=== PATIENT | male | born 1960 | race Caucasian/White ===

== ENCOUNTER 2019-03-04 07:43 | Emergency (ER) | payer SELFPAY ==
[~2019-03-04] VITALS: Ht 188 cm; Wt 81.6 kg
[2019-03-04 07:49] VITALS: BP 143/69
--- NOTE | 2019-03-04 08:09 | PHYS DOC ---
Past Medical History Past Medical History: Asthma, COPD, Diabetes-Type II, Hypertension Additional Past Surgical Histo: hernia,spleen Alcohol Use: None Drug Use: None Adult General Chief Complaint Chief Complaint: ANIMAL BITE HPI HPI Patient is a 58-year-old male who presents after reportedly being bitten by a stray cat 2 days ago. Patient indicates that his right hand has become swollen and painful and extends up to the distal forearm. He rates pain as moderate. He denies any fevers. Attack was reportedly unprovoked.[] Review of Systems Review of Systems Constitutional: Denies fever or chills [] Respiratory: Denies cough or shortness of breath [] Cardiovascular: No additional information not addressed in HPI [] Musculoskeletal: Positive right hand and wrist pain [] Neurologic: Denies headache, focal weakness or sensory changes [] All other systems were reviewed and found to be within normal limits, except as documented in this note. Physical Exam Physical Exam Constitutional: Well developed, well nourished, no acute distress, non-toxic appearance. [] HENT: Normocephalic, atraumatic, bilateral external ears normal, oropharynx moist, no oral exudates, nose normal. [] Eyes: PERRLA, EOMI, conjunctiva normal, no discharge. [] Neck: Normal range of motion, no tenderness, supple. [] Cardiovascular: Regular rate and rhythm[] Lungs & Thorax: Fine rhonchi are noted bilaterally to auscultation [] Abdomen: Bowel sounds normal, soft. [] Skin: Warm, dry. There is erythema and warmth noted to the dorsal aspect of right hand. There are several puncture wounds to the dorsal aspect of the hand and wrist area, consistent with cat bite. [] Extremities: Examination of right hand demonstrates moderate soft tissue swelling primarily to the dorsal aspect of the hand extending to the distal forearm and wrist. There is moderate tenderness to palpation overlying this area and pain in the dorsal hand with flexion of the fingers. [] Neurologic: Alert and oriented X 3, no focal deficits noted. [] Current Patient Data Vital Signs Vital Signs Date Time Temp Pulse Resp B/P (MAP) Pulse Ox O2 Delivery O2 Flow Rate FiO2 03/04/19 07:49 97.8 68 20 143/69 (93) 97.8 EKG EKG [] Radiology/Procedures Radiology/Procedures [] Course & Med Decision Making Course & Med Decision Making Pertinent Labs and Imaging studies reviewed. (See chart for details) Patient moved to room upon arrival was evaluated by ER medical staff and discussion of care to include blood work, ultrasound and establishment of IV was had with patient. I also discussed likely need for admission to this facility or possibly even transfer to another facility should patient have abscess formation in the hand and require hand surgeon. Patient further counseled on rabies postexposure prophylaxis. When nursing staff went to obtain blood, patient reportedly got upset and left department AGAINST MEDICAL ADVICE, refusing to sign AMA paperwork. Patient would not wait for physician to explain risks of leaving AGAINST MEDICAL ADVICE. Dragon Disclaimer Dragon Disclaimer This electronic medical record was generated, in whole or in part, using a voice recognition dictation system. Departure Departure Impression: Primary Impression: Bite from cat Disposition: 07 AGAINST MEDICAL ADVICE Condition: GOOD Referrals: NON,STAFF (PCP) Problem Qualifiers Primary Impression: Bite from cat Encounter type: initial encounter Qualified Codes: W55.01XA - Bitten by cat, initial encounter SAROJ ARROYO Jr. DO Mar 04, 2019 08:09
== END 2019-03-04 08:00 | disposition left against medical advice (07) ==
LOC: ER 07:43
DX: S61.451A Open bite of right hand, initial encounter (principal); J44.9 Chronic obstructive pulmonary disease, unspecified; E11.9 Type 2 diabetes mellitus without complications; I10 Essential (primary) hypertension; W55.01XA Bitten by cat, initial encounter; Y93.89 Activity, other specified; Y92.89 Other specified places as the place of occurrence of the external cause; Y99.8 Other external cause status
CPT/HCPCS: 99281

== ENCOUNTER 2019-04-05 19:45 | Inpatient (IN) | payer SELFPAY ==
[~2019-04-05] VITALS: Ht 188 cm; Wt 84.6 kg
[2019-04-05] MEDS ORDERED: IV NORMAL SALINE 1000ML BAG 1,000 ML IV SCH (20:34)
[2019-04-05 20:42] LABS: BASO % 0 % (0-3); EOS % 0 % (0-3); HEMATOCRIT 45.2 % (39.0-53.0); HEMOGLOBIN 15.1 g/dL (13.0-17.5); LYMPH % 16 % (24-48); MEAN CORPUSCULAR HEMOGLOBIN 32 pg (25-35); MEAN CORPUSCULAR HGB CONC 33 g/dL (31-37); MEAN CORPUSCULAR VOLUME 95 fL (79-100); MONO # 0.4 x10^3/uL (0.0-1.1); MONO % 7 % (0-9); NEUT % 77 % (31-73); PLATELET COUNT 218 x10^3/uL (140-400); RED BLOOD COUNT 4.78 x10^6/uL (4.30-5.70); RED CELL DISTRIBUTION WIDTH 14.5 % (11.5-14.5); WHITE BLOOD COUNT 6.4 x10^3/uL (4.0-11.0)
[2019-04-05] MEDS ORDERED: IPRATRPIUM/ALBUTEROL 0.5/2.5MG 3 ML NEBU. NEB ONE (20:45)
--- NOTE | 2019-04-05 20:48 | PHYS DOC ---
Past Medical History Past Medical History: Asthma, COPD, Diabetes-Type II, Hypertension Additional Past Surgical Histo: hernia,spleen Alcohol Use: None Drug Use: None Adult General Chief Complaint Chief Complaint: COUGH HPI HPI 59-year-old male presents to the emergency department with complaints of cough, chills, nausea, vomiting, body aches. Patient states he was seen on 04/02 with diagnosis of pneumonia and influenza. He is provided with antibiotic, Tamiflu, prednisone. Patient states she's had continued shortness of breath and is not improved. Nothing makes his symptoms worse, nothing makes his symptoms better. Patient states he stopped taking medications. Patient has underlying history of diabetes, hypertension, asthma Review of Systems Review of Systems Constitutional: chills Eyes: Denies change in visual acuity, redness, or eye pain [] HENT: Denies nasal congestion or sore throat[] Respiratory: cough/SOB Cardiovascular: No additional information not addressed in HPI [] GI: Denies abdominal pain, + nausea, vomiting, no bloody stools or diarrhea [] Musculoskeletal: Denies back pain or joint pain [] Neurologic: Denies headache, focal weakness or sensory changes [] All other systems were reviewed and found to be within normal limits, except as documented in this note. Current Medications Current Medications Current Medications Medications (Trade) Dose Ordered Sig/Tyler Start Time Stop Time Status Last Admin Dose Admin Albuterol/ Ipratropium (Duoneb) 3 ml 1X ONCE 04/05/19 20:45 04/05/19 20:46 DC 04/05/19 20:45 3 ML Levofloxacin/ Dextrose 150 ml @ 100 mls/hr 1X ONCE 04/05/19 22:45 04/06/19 00:14 Methylprednisolone Sodium Succinate (SOLU-Medrol 125MG VIAL) 125 mg 1X ONCE 04/05/19 22:45 04/05/19 22:46 DC Sodium Chloride 1,000 ml @ 1,000 mls/hr Q1H 04/05/19 20:34 04/05/19 21:33 DC 04/05/19 20:41 1,000 MLS/HR Allergies Allergies Allergies Coded Allergies Type Severity Reaction Last Updated Verified No Known Drug Allergies 04/05/19 No Physical Exam Physical Exam Constitutional: Well developed, well nourished, mild distress 2/2 SOB, non-toxic appearance. [] HENT: Normocephalic, atraumatic, bilateral external ears normal, oropharynx moist, no oral exudates, nose normal. [] Eyes: PERRLA, EOMI, conjunctiva normal, no discharge. [] Neck: Normal range of motion, no tenderness, supple, no stridor. [] Cardiovascular: tachycardia Lungs & Thorax: decreased BS, + crackles appreciated to lower bases Abdomen: Bowel sounds normal, soft, no tenderness, no masses, no pulsatile masses. [] Skin: Warm, dry, no erythema, no rash. [] Back: No tenderness, no CVA tenderness. [] Extremities: No tenderness, no edema. [] Neurologic: Alert and oriented X 3, no focal deficits noted. [] Psychologic: Affect normal, judgement normal, mood normal. [] Current Patient Data Vital Signs Vital Signs Date Time Temp Pulse Resp B/P (MAP) Pulse Ox O2 Delivery O2 Flow Rate FiO2 04/05/19 21:25 98 115/76 (89) 100 Room Air 04/05/19 19:52 103.1 30 103.1 Lab Values Laboratory Tests Test 04/05/19 20:09 04/05/19 20:40 White Blood Count 6.4 x10^3/uL (4.0-11.0) Red Blood Count 4.78 x10^6/uL (4.30-5.70) Hemoglobin 15.1 g/dL (13.0-17.5) Hematocrit 45.2 % (39.0-53.0) Mean Corpuscular Volume 95 fL (79-100) Mean Corpuscular Hemoglobin 32 pg (25-35) Mean Corpuscular Hemoglobin Concent 33 g/dL (31-37) Red Cell Distribution Width 14.5 % (11.5-14.5) Platelet Count 218 x10^3/uL (140-400) Neutrophils (%) (Auto) 77 % (31-73) H Lymphocytes (%) (Auto) 16 % (24-48) L Monocytes (%) (Auto) 7 % (0-9) Eosinophils (%) (Auto) 0 % (0-3) Basophils (%) (Auto) 0 % (0-3) Neutrophils # (Auto) 5.0 x10^3/uL (1.8-7.7) Lymphocytes # (Auto) 1.0 x10^3/uL (1.0-4.8) Monocytes # (Auto) 0.4 x10^3/uL (0.0-1.1) Eosinophils # (Auto) 0.0 x10^3/uL (0.0-0.7) Basophils # (Auto) 0.0 x10^3/uL (0.0-0.2) Platelet Estimate Adequate (ADEQUATE) Large Platelets Present Spherocytes Occ Target Cells Occ [place] Bodies Present Sodium Level 134 mmol/L (136-145) L Potassium Level 3.9 mmol/L (3.5-5.1) Chloride Level 96 mmol/L (98-107) L Carbon Dioxide Level 29 mmol/L (21-32) Anion Gap 9 (6-14) Blood Urea Nitrogen 16 mg/dL (8-26) Creatinine 1.0 mg/dL (0.7-1.3) Estimated GFR (Cockcroft-Gault) 76.5 BUN/Creatinine Ratio 16 (6-20) Glucose Level 224 mg/dL (70-99) H Lactic Acid Level 1.7 mmol/L (0.4-2.0) Calcium Level 8.2 mg/dL (8.5-10.1) L Total Bilirubin 0.4 mg/dL (0.2-1.0) Aspartate Amino Transferase (AST) 24 U/L (15-37) Alanine Aminotransferase (ALT) 18 U/L (16-63) Alkaline Phosphatase 77 U/L (46-116) Troponin I Quantitative 0.033 ng/mL (0.000-0.055) FM-Rrl-V-Type Natriuretic Peptide 442 pg/mL (0-124) H Total Protein 6.5 g/dL (6.4-8.2) Albumin 2.8 g/dL (3.4-5.0) L Albumin/Globulin Ratio 0.8 (1.0-1.7) L Influenza Type A Antigen Positive (NEGATIVE) Influenza Type B Antigen Negative (NEGATIVE) Laboratory Tests 04/05/19 20:09 Laboratory Tests 04/05/19 20:09 EKG EKG [] Radiology/Procedures Radiology/Procedures wet read radiology - there is some haziness appreciated to upper lobes of bilateral lung, no profound consolidation, evidence of flattened diaphragm[] Course & Med Decision Making Course & Med Decision Making Pertinent Labs and Imaging studies reviewed. (See chart for details) []59-year-old male presents to the emergency department with complaints of cough, chills, nausea, vomiting, body aches. Patient states he was seen on 04/02 with diagnosis of pneumonia and influenza. He is provided with antibiotic, Tamiflu, prednisone. Patient states she's had continued shortness of breath and is not improved. Nothing makes his symptoms worse, nothing makes his symptoms better. Patient states he stopped taking medications. Patient has underlying history of diabetes, hypertension, asthma. Labs reviewed, lactic acid 1.7, troponin 0.033, metabolic profile white blood cell count within normal limits Influenza A positive, chest x-ray reveals evidence of flattened diaphragms c oncerning for COPD, he does have some haziness appreciated to bilateral upper lobes no acute consolidation identified Recommend admit, patient did have hypoxia at rest saturations 86-87% on room air Discussed admission with patient and plan for further observation. Patient provided with DuoNeb, slightly mental, Levaquin Dragon Disclaimer Dragon Disclaimer This electronic medical record was generated, in whole or in part, using a voice recognition dictation system. Departure Departure Impression: Primary Impression: COPD exacerbation Additional Impressions: Influenza Hypoxia Disposition: ADMITTED INPATIENT Admitting Physician: DEAN Condition: IMPROVED Referrals: NON,STAFF (PCP) Problem Qualifiers HEATHER BROTHERS MD Apr 05, 2019 20:47
[2019-04-05 20:54] LABS: CALCIUM 8.2 mg/dL (8.5-10.1); GFR 76.5; POTASSIUM 3.9 mmol/L (3.5-5.1)
[2019-04-05 20:59] LABS: ALBUMIN 2.8 g/dL (3.4-5.0); ALBUMIN/GLOBULIN RATIO 0.8 (1.0-1.7); TOTAL BILIRUBIN 0.4 mg/dL (0.2-1.0); TOTAL PROTEIN 6.5 g/dL (6.4-8.2)
[2019-04-05 21:11] LABS: HOWELL-JOLLY BODIES PRESENT; PLT ESTIMATE ADEQUATE (ADEQUATE)
[2019-04-05 21:12] LABS: INFLUENZA A PATIENT POSITIVE (NEGATIVE); INFLUENZA B PATIENT NEGATIVE (NEGATIVE)
[2019-04-05 21:12] LABS: SPHEROCYTES OCC
[2019-04-05 21:13] LABS: TARGET CELLS OCC
[2019-04-05] MEDS ORDERED: methylPREDNISolone SOD SUCC PF 125 MG/2 ML VIAL. IV ONE (22:45)
[2019-04-05] MEDS ORDERED: ACETAMINOPHEN 325 MG TABLET. PO PRN (23:00)
[2019-04-05] MEDS ORDERED: ONDANSETRON PF 4 MG/2 ML VIAL. IV PRN (23:00)
[2019-04-05 23:30] VITALS: BP 103/50
--- NOTE | 2019-04-05 23:43 | RAD ---
Examination: PORTABLE CHEST 1V History: Cough and shortness of breath Comparison/Correlation: None Findings: Portable upright frontal view of the chest was obtained. Pulmonary hyperinflation noted. No pneumothorax. Old left-sided rib fractures are present. Right costophrenic angle is not included limiting assessment. No left pleural effusion. Subtle interstitial thickening diffusely of the lung bush is present and there is chronic. Pulmonary vasculature is borderline. No focal consolidation. Impression: No focal process. Electronically signed by: Bert Glaser MD (04/05/2019 11:40 PM) [place] [id number]
--- NOTE | 2019-04-06 01:37 | NUR ---
The patient, KATIE BERNAL, 59 y/o, M admitted by EDY TURCIOS III, DO, was given written information regarding hospital policies, unit procedures and contact persons. Valuables were checked and left in the room.
[2019-04-06 03:55] VITALS: BP 99/54
--- NOTE | 2019-04-06 06:27 | EKG ---
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
--- NOTE | 2019-04-06 07:45 | NUR ---
Pt removed tele and stormed out of room stating, "I am leaving because they won't let me have my cigarettes." Security called. Pt back in room agreeing to stay until doctor sees him. Refusing tele, IV, and vitals.
[2019-04-06] MEDS ORDERED: IPRATRPIUM/ALBUTEROL 0.5/2.5MG 3 ML NEBU. NEB SCH (08:00)
--- NOTE | 2019-04-06 08:30 | NUR ---
IP: Pt is influenza + requiring droplet precautions for 7 days and 24 hours without a fever, whichever is longest. Contact precautions are not needed with the initiation of Nozin/CHG.
--- NOTE | 2019-04-06 08:40 | PDOC1 ---
History and Physical Date of Admission Date of Admission DATE: 04/06/19 TIME: 08:38 Identification/Chief Complaint Chief Complaint Shortness of breath Source Source: Patient History of Present Illness History of Present Illness Mr Mcelroy is a 59yo M w/ PMHx Asthma, COPD, Diabetes-Type II, Hypertension c/o cough, chills, nausea, vomiting, body aches. Patient states he was seen on 04/02 with diagnosis of pneumonia and influenza. He is provided with antibiotic, Tamiflu, prednisone. Patient states he's had continued shortness of breath and is not improved. Nothing makes his symptoms worse, nothing makes his symptoms b samantha. Patient states he stopped taking medications. Patient has underlying history of diabetes, hypertension, asthma. Trop was 0.03, glucose 224. He is insisting he be allowed to smoke, I have advised him he cannot do this in the hospital, offered nicotine replacement. He asks if he can leave, then. Past Medical History Cardiovascular: HTN Pulmonary: Asthma, COPD Rheumatologic: No pertinent hx Infectious disease: No pertinent hx ENT: No pertinent hx Renal/: No pertinent hx Endocrine: Diabetes Dermatology: No pertinent hx Past Surgical History Past Surgical History: Hernia Repair, Other (Spleen) Social History Smoke: 2 packs per day ALCOHOL: rare Drugs: None Current Medications Current Medications Current Medications Sodium Chloride 1,000 ml @ 1,000 mls/hr Q1H IV Last administered on 04/05/19at 20:41; Start 04/05/19 at 20:34; Stop 04/05/19 at 21:33; Status DC Albuterol/ Ipratropium (Duoneb) 3 ml 1X ONCE NEB Last administered on 04/05/19at 20:45; Start 04/05/19 at 20:45; Stop 04/05/19 at 20:46; Status DC Methylprednisolone Sodium Succinate (SOLU-Medrol 125MG VIAL) 125 mg 1X ONCE IV Last administered on 04/05/19at 22:49; Start 04/05/19 at 22:45; Stop 04/05/19 at 22:46; Status DC Levofloxacin/ Dextrose 150 ml @ 100 mls/hr 1X ONCE IV Last administered on 04/05/19at 22:49; Start 04/05/19 at 22:45; Stop 04/06/19 at 00:14; Status DC Ondansetron HCl (Zofran) 4 mg PRN Q8HRS PRN IV NAUSEA/VOMITING; Start 04/05/19 at 23:00; Stop 04/06/19 at 22:59 Acetaminophen (Tylenol) 650 mg PRN Q4HRS PRN PO FEVER Last administered on 04/05/19at 23:10; Start 04/05/19 at 23:00; Stop 04/06/19 at 22:59 Albuterol/ Ipratropium (Duoneb) 3 ml RTQID NEB ; Start 04/06/19 at 08:00; Stop 04/07/19 at 07:59 Influenza Virus Vaccine Quadrival (Afluria Quad 2019-20 (3yr Up) Syringe) 0.5 ml ONCE ONCE VAX IM ; Start 04/06/19 at 09:00; Stop 04/06/19 at 09:01 Allergies Allergies: Coded Allergies: No Known Drug Allergies (Unverified , 04/05/19) ROS General: YES: Fatigue, Malaise; No: Chills, Night Sweats, Appetite, Other PSYCHOLOGICAL ROS: YES: Anxiety; No: Behavioral Disorder, Concentration difficultie, Decreased libido, Depression, Disorientation, Hallucinations, Hostility, Irritablity, Memory difficulties, Mood Swings, Obsessive thoughts, Physical abuse, Sexual abuse, Sleep disturbances, Suicidal ideation, Other Eyes: No Blurry vision, No Decreased vision, No Double vision, No Dry eyes, No Excessive tearing, No Eye Pain, No Itchy Eyes, No Loss of vision, No Photophobia, No Scotomata, No Uses contacts, No Uses glasses, No Other HEENT: No: Heacaches, Visual Changes, Hearing change, Nasal congestion, Nasal discharge, Oral lesions, Sinus pain, Sore Throat, Epistaxis, Sneezing, Snoring, Tinnitus, Vertigo, Vocal changes, Other ALLERGY AND IMMUNOLOGY: No: Hives, Insect Bite Sensitivity, Itchy/Watery Eyes, Nasal Congestion, Post Nasal Drip, Seasonal Allergies, Other Hematological and Lymphatic: No: Bleeding Problems, Blood Clots, Blood Tr ansfusions, Brusing, Night Sweats, Pallor, Swollen Lymph Nodes, Other ENDOCRINE: No: Breast Changes, Galactorrhea, Hair Pattern Changes, Hot Flashes, Malaise/lethargy, Mood Swings, Palpitations, Polydipsia/polyuria, Skin Changes, Temperature Intolerance, Unexpected Weight Changes, Other Breast: No New/Changing Breast Lumps, No Nipple changes, No Nipple discharge, No Other Respiratory: YES: Cough, Shortness of breath, SOB with excertion, Tachypnea, Wheezing; No: Hemoptysis, Orthopnea, Pleuritic Pain, Sputum Changes, Stridor, Other Cardiovascular: No Chest Pain, No Palpitations, No Orthopnea, No Paroxysmal Noc. Dyspnea, No Edema, No Lt Headedness, No Other Gastrointestinal: No Nausea, No Vomiting, No Abdominal Pain, No Diarrhea, No Constipation, No Melena, No Hematochezia, No Other Genitourinary: No Dysuria, No Frequency, No Incontinence, No Hematuria, No Retention, No Discharge, No Urgency, No Pain, No Flank Pain, No Other, No , No , No , No , No , No , No Musculoskeletal: No Gait Disturbance, No Joint Pain, No Joint Stiffness, No Joint Swelling, No Muscle Pain, No Muscular Weakness, No Pain In:, No Swelling In:, No Other Neurological: No Behavorial Changes, No Bowel/Bladder ControlChng, No Confusion, No Dizziness, No Gait Disturbance, No Headaches, No Impaired Coord/balance, No Memory Loss, No Numbness/Tingling, No Seizures, No Speech Problems, No Tremors, No Visual Changes, No Weakness, No Other Skin: No Dry Skin, No Eczema, No Hair Changes, No Lumps, No Mole Changes, No Mottling, No Nail Changes, No Pruritus, No Rash, No Skin Lesion Changes, No Other, No Acne Physical Exam General: Alert, Oriented X3, Cooperative, No acute distress HEENT: Atraumatic, PERRLA, EOMI, Mucous membr. moist/pink Lungs: Other (Wheezing) Heart: S1S2, RRR, no thrills, no rubs Abdomen: Normal bowel sounds, Soft, No tenderness, No hepatosplenomegaly, No masses Rectal Exam: not examined Extremities: No clubbing, No cyanosis, No edema, Normal pulses, No t enderness/swelling Skin: No rashes, No breakdown, No significant lesion Neuro: Normal gait, Normal speech, Strength at 5/5 X4 ext, Normal tone, Sensation intact, Cranial nerves 3-12 NL, Reflexes 2+ Psych/Mental Status: Mental status NL, Mood NL Vitals Vitals Vital Signs Date Time Temp Pulse Resp B/P (MAP) Pulse Ox O2 Delivery O2 Flow Rate FiO2 04/06/19 03:55 98.6 65 20 99/54 (69) 99 Room Air 98.6 Labs Labs Laboratory Tests Test 04/05/19 20:09 04/05/19 20:40 White Blood Count 6.4 x10^3/uL (4.0-11.0) Red Blood Count 4.78 x10^6/uL (4.30-5.70) Hemoglobin 15.1 g/dL (13.0-17.5) Hematocrit 45.2 % (39.0-53.0) Mean Corpuscular Volume 95 fL (79-100) Mean Corpuscular Hemoglobin 32 pg (25-35) Mean Corpuscular Hemoglobin Concent 33 g/dL (31-37) Red Cell Distribution Width 14.5 % (11.5-14.5) Platelet Count 218 x10^3/uL (140-400) Neutrophils (%) (Auto) 77 % (31-73) Lymphocytes (%) (Auto) 16 % (24-48) Monocytes (%) (Auto) 7 % (0-9) Eosinophils (%) (Auto) 0 % (0-3) Basophils (%) (Auto) 0 % (0-3) Neutrophils # (Auto) 5.0 x10^3/uL (1.8-7.7) Lymphocytes # (Auto) 1.0 x10^3/uL (1.0-4.8) Monocytes # (Auto) 0.4 x10^3/uL (0.0-1.1) Eosinophils # (Auto) 0.0 x10^3/uL (0.0-0.7) Basophils # (Auto) 0.0 x10^3/uL (0.0-0.2) Platelet Estimate Adequate (ADEQUATE) Large Platelets Present Spherocytes Occ Target Cells Occ [place] Bodies Present Sodium Level 134 mmol/L (136-145) Potassium Level 3.9 mmol/L (3.5-5.1) Chloride Level 96 mmol/L (98-107) Carbon Dioxide Level 29 mmol/L (21-32) Anion Gap 9 (6-14) Blood Urea Nitrogen 16 mg/dL (8-26) Creatinine 1.0 mg/dL (0.7-1.3) Estimated GFR (Cockcroft-Gault) 76.5 BUN/Creatinine Ratio 16 (6-20) Glucose Level 224 mg/dL (70-99) Lactic Acid Level 1.7 mmol/L (0.4-2.0) Calcium Level 8.2 mg/dL (8.5-10.1) Total Bilirubin 0.4 mg/dL (0.2-1.0) Aspartate Amino Transf (AST/SGOT) 24 U/L (15-37) Alanine Aminotransferase (ALT/SGPT) 18 U/L (16-63) Alkaline Phosphatase 77 U/L (46-116) Troponin I Quantitative 0.033 ng/mL (0.000-0.055) BS-Jki-O-Type Natriuretic Peptide 442 pg/mL (0-124) Total Protein 6.5 g/dL (6.4-8.2) Albumin 2.8 g/dL (3.4-5.0) Albumin/Globulin Ratio 0.8 (1.0-1.7) Influenza Type A Antigen Positive (NEGATIVE) Influenza Type B Antigen Negative (NEGATIVE) Laboratory Tests Test 04/05/19 20:09 04/05/19 20:40 White Blood Count 6.4 x10^3/uL (4.0-11.0) Red Blood Count 4.78 x10^6/uL (4.30-5.70) Hemoglobin 15.1 g/dL (13.0-17.5) Hematocrit 45.2 % (39.0-53.0) Mean Corpuscular Volume 95 fL (79-100) Mean Corpuscular Hemoglobin 32 pg (25-35) Mean Corpuscular Hemoglobin Concent 33 g/dL (31-37) Red Cell Distribution Width 14.5 % (11.5-14.5) Platelet Count 218 x10^3/uL (140-400) Neutrophils (%) (Auto) 77 % (31-73) Lymphocytes (%) (Auto) 16 % (24-48) Monocytes (%) (Auto) 7 % (0-9) Eosinophils (%) (Auto) 0 % (0-3) Basophils (%) (Auto) 0 % (0-3) Neutrophils # (Auto) 5.0 x10^3/uL (1.8-7.7) Lymphocytes # (Auto) 1.0 x10^3/uL (1.0-4.8) Monocytes # (Auto) 0.4 x10^3/uL (0.0-1.1) Eosinophils # (Auto) 0.0 x10^3/uL (0.0-0.7) Basophils # (Auto) 0.0 x10^3/uL (0.0-0.2) Platelet Estimate Adequate (ADEQUATE) Large Platelets Present Spherocytes Occ Target Cells Occ [place] Bodies Present Sodium Level 134 mmol/L (136-145) Potassium Level 3.9 mmol/L (3.5-5.1) Chloride Level 96 mmol/L (98-107) Carbon Dioxide Level 29 mmol/L (21-32) Anion Gap 9 (6-14) Blood Urea Nitrogen 16 mg/dL (8-26) Creatinine 1.0 mg/dL (0.7-1.3) Estimated GFR (Cockcroft-Gault) 76.5 BUN/Creatinine Ratio 16 (6-20) Glucose Level 224 mg/dL (70-99) Lactic Acid Level 1.7 mmol/L (0.4-2.0) Calcium Level 8.2 mg/dL (8.5-10.1) Total Bilirubin 0.4 mg/dL (0.2-1.0) Aspartate Amino Transf (AST/SGOT) 24 U/L (15-37) Alanine Aminotransferase (ALT/SGPT) 18 U/L (16-63) Alkaline Phosphatase 77 U/L (46-116) Troponin I Quantitative 0.033 ng/mL (0.000-0.055) CB-Hni-N-Type Natriuretic Peptide 442 pg/mL (0-124) Total Protein 6.5 g/dL (6.4-8.2) Albumin 2.8 g/dL (3.4-5.0) Albumin/Globulin Ratio 0.8 (1.0-1.7) Influenza Type A Antigen Positive (NEGATIVE) Influenza Type B Antigen Negative (NEGATIVE) Images Images CXR - Pulmonary hyperinflation noted. No pneumothorax. Old left-sided rib fractures are present. Right costophrenic angle is not included limiting assessment. No left pleural effusion. Subtle interstitial thickening diffusely of the lung bush is present and there is chronic. Pulmonary vasculature is borderline. No focal consolidation. VTE Prophylaxis Ordered VTE Prophylaxis Devices: No VTE Pharmacological Prophylaxi: Yes Assessment/Plan Assessment/Plan A/P: Influenza A - given tamiflu, will continue and give levaquin for superimposed bacterial pneumonia Asthma with COPD - mild exacerbation by way of influenza. Treating Diabetes-Type II - on sliding scale Hypertension - cont meds Smoker - Counseled on cessation, does not wish for nicotine replacement therapy. FEN - general diet PPX - lovenox FULL CODE Dispo - likely home if he will actually complete his tamiflu course. He may leave [facility] prior to getting his new scripts. WALLACE BAUTISTA MD Apr 06, 2019 08:40
[2019-04-06] MEDS ORDERED: DEXTROSE 50% 25 GM / 50ML DISP.SYRIN. IV PRN (08:45)
[2019-04-06] MEDS ORDERED: IV DEXTROSE 5% 250 ML BAG. IV PRN (08:45)
[2019-04-06] MEDS ORDERED: ONDANSETRON PF 4 MG/2 ML VIAL. IV PRN (08:45)
--- NOTE | 2019-04-06 08:52 | PDOC2 ---
CARDIAC CONSULT DATE OF CONSULT Date of Consult DATE: 04/06/19 TIME: 08:39 REASON FOR CONSULT Reason for Consult: new AFIB REFERRING PHYSICIAN Referring Physician: Dr. Alonzo SOURCE Source: Chart review, Patient HISTORY OF PRESENT ILLNESS HISTORY OF PRESENT ILLNESS This is a 59 yo male who presented secondary to fevers, body aches, and cough/wheezing. Patient reports symptoms began about two weeks ago. Was seen at [facility] and diagnosised with Influenza and PNA. Was send home with Tamiflu, prednisone, and antibiotic therapy. Was unable to afford the Tamiflu, but did get the others. Symptoms has persisted and continue to have fevers and chills so he came to the ED for further treatment. Denies any chest pain, palpitations, dizziness, or nausea/vomiting. Telemetry reporting AFIB, but further review shows SR with PAC's. Patient agitated this morning and is refusing to wear tele. Is homeless and has very limited financial means. PAST MEDICAL HISTORY Cardiovascular: HTN Pulmonary: Asthma, COPD GI: GERD Musculoskeletal: Osteoarthritis Endocrine: Diabetes PAST SURGICAL HISTORY Past Surgical History: Other (splenectomy ) FAMILY HISTORY Family History: Heart Disease, Hypertension SOCIAL HISTORY Smoke: 1 pack per day ALCOHOL: none Drugs: None Lives: Homeless CURRENT MEDICATIONS CURRENT MEDICATIONS Current Medications Medications (Trade) Dose Ordered Sig/Tyler Route PRN Reason Start Time Stop Time Status Last Admin Dose Admin Sodium Chloride 1,000 ml @ 1,000 mls/hr Q1H IV 04/05/19 20:34 04/05/19 21:33 DC 04/05/19 20:41 Albuterol/ Ipratropium (Duoneb) 3 ml 1X ONCE NEB 04/05/19 20:45 04/05/19 20:46 DC 04/05/19 20:45 Methylprednisolone Sodium Succinate (SOLU-Medrol 125MG VIAL) 125 mg 1X ONCE IV 04/05/19 22:45 04/05/19 22:46 DC 04/05/19 22:49 Levofloxacin/ Dextrose 150 ml @ 100 mls/hr 1X ONCE IV 04/05/19 22:45 04/06/19 00:14 DC 04/05/19 22:49 Acetaminophen (Tylenol) 650 mg PRN Q4HRS PRN PO FEVER 04/05/19 23:00 04/06/19 22:59 04/05/19 23:10 ALLERGIES ALLERGIES: Coded Allergies: No Known Drug Allergies (Unverified , 04/05/19) ROS Review of System 14 point ROS conducted with pertinent positives noted above in HPI PHYSICAL EXAM General: Alert, Oriented X3, Cooperative, No acute distress HEENT: Atraumatic, Mucous membr. moist/pink Lungs: Other (coarse, wheezy throughout ) Heart: Regular rate (SR with PAC's ), Other (distant heart tones ) Abdomen: Soft, No tenderness Extremities: No edema, Normal pulses Skin: No significant lesion Neuro: Normal speech, Sensation intact Psych/Mental Status: Mental status NL, Other (flat affect ) MUSCULOSKELETAL: Osteoarthritic changes both hands VITALS/I&O VITALS/I&O: Vital Signs Date Time Temp Pulse Resp B/P (MAP) Pulse Ox O2 Delivery O2 Flow Rate FiO2 04/06/19 03:55 98.6 65 20 99/54 (69) 99 Room Air 98.6 I & O 04/05/19 04/05/19 04/06/19 15:00 23:00 07:00 Intake Total 1000 ml 300 ml Balance 1000 ml 300 ml LABS Lab: Laboratory Tests Test 04/05/19 20:09 04/05/19 20:40 White Blood Count 6.4 x10^3/uL (4.0-11.0) Red Blood Count 4.78 x10^6/uL (4.30-5.70) Hemoglobin 15.1 g/dL (13.0-17.5) Hematocrit 45.2 % (39.0-53.0) Mean Corpuscular Volume 95 fL (79-100) Mean Corpuscular Hemoglobin 32 pg (25-35) Mean Corpuscular Hemoglobin Concent 33 g/dL (31-37) Red Cell Distribution Width 14.5 % (11.5-14.5) Platelet Count 218 x10^3/uL (140-400) Neutrophils (%) (Auto) 77 % (31-73) H Lymphocytes (%) (Auto) 16 % (24-48) L Monocytes (%) (Auto) 7 % (0-9) Eosinophils (%) (Auto) 0 % (0-3) Basophils (%) (Auto) 0 % (0-3) Neutrophils # (Auto) 5.0 x10^3/uL (1.8-7.7) Lymphocytes # (Auto) 1.0 x10^3/uL (1.0-4.8) Monocytes # (Auto) 0.4 x10^3/uL (0.0-1.1) Eosinophils # (Auto) 0.0 x10^3/uL (0.0-0.7) Basophils # (Auto) 0.0 x10^3/uL (0.0-0.2) Platelet Estimate Adequate (ADEQUATE) Large Platelets Present Spherocytes Occ Target Cells Occ [place] Bodies Present Sodium Level 134 mmol/L (136-145) L Potassium Level 3.9 mmol/L (3.5-5.1) Chloride Level 96 mmol/L (98-107) L Carbon Dioxide Level 29 mmol/L (21-32) Anion Gap 9 (6-14) Blood Urea Nitrogen 16 mg/dL (8-26) Creatinine 1.0 mg/dL (0.7-1.3) Estimated GFR (Cockcroft-Gault) 76.5 BUN/Creatinine Ratio 16 (6-20) Glucose Level 224 mg/dL (70-99) H Lactic Acid Level 1.7 mmol/L (0.4-2.0) Calcium Level 8.2 mg/dL (8.5-10.1) L Total Bilirubin 0.4 mg/dL (0.2-1.0) Aspartate Amino Transferase (AST) 24 U/L (15-37) Alanine Aminotransferase (ALT) 18 U/L (16-63) Alkaline Phosphatase 77 U/L (46-116) Troponin I Quantitative 0.033 ng/mL (0.000-0.055) LX-Svy-C-Type Natriuretic Peptide 442 pg/mL (0-124) H Total Protein 6.5 g/dL (6.4-8.2) Albumin 2.8 g/dL (3.4-5.0) L Albumin/Globulin Ratio 0.8 (1.0-1.7) L Influenza Type A Antigen Positive (NEGATIVE) Influenza Type B Antigen Negative (NEGATIVE) Laboratory Tests 04/05/19 20:09 Laboratory Tests 04/05/19 20:09 ASSESSMENT/PLAN ASSESSMENT/PLAN 1. Fevers, myalgias. + Influena A 2. Arrhythmia; tele noted with SR with PAC's. No evidence of AFIB. Now refusing to wear tele. 3. Hypertension; controlled 4. Diabetes, II 5. COPD 6. Tobaccoism; discussed/encouraged cessation 7. Homeless Recommendations TSH, Mg level- replace as warranted No further cardiac workup warranted at this time PANCHO DODGE APRN Apr 06, 2019 08:52
[2019-04-06] MEDS ORDERED: FLU VAX QS 2019-20 (36MOS+)/PF 0.5 ML SYRINGE. VAX IM ONE (09:00)
[2019-04-06] MEDS ORDERED: OSELTAMIVIR 75 MG CAPSULE PO SCH (09:00)
[2019-04-06] MEDS ORDERED: INSULIN LISPRO 300 UNITS/3 ML VIAL. SQ SCH (12:00)
--- NOTE | 2019-04-06 14:00 | NUR ---
Pt left AMA at 1400. This RN informed pt that doctor was putting in discharge order. Pt did not want to wait. Pt escorted by security, this RN, and son.
[2019-04-06] MEDS ORDERED: LEVO750T31 PO (14:09)
[2019-04-06] MEDS ORDERED: OSEL75CA PO (14:09)
--- NOTE | 2019-04-06 14:19 | PDOC3 ---
Discharge Summary Visit Information Date of Admission: Apr 05, 2019 Date of Discharge: Apr 06, 2019 Admitting Diagnosis: Influenza A Final Diagnosis Influenza A Brief Hospital Course Allergies Allergies Coded Allergies Type Severity Reaction Last Updated Verified No Known Drug Allergies 04/05/19 No Vital Signs Vital Signs Date Time Temp Pulse Resp B/P (MAP) Pulse Ox O2 Delivery O2 Flow Rate FiO2 04/06/19 08:00 Room Air 04/06/19 03:55 98.6 65 20 99/54 (69) 99 98.6 Lab Results Laboratory Tests Test 04/05/19 20:09 04/05/19 20:40 04/06/19 10:17 White Blood Count 6.4 x10^3/uL (4.0-11.0) Red Blood Count 4.78 x10^6/uL (4.30-5.70) Hemoglobin 15.1 g/dL (13.0-17.5) Hematocrit 45.2 % (39.0-53.0) Mean Corpuscular Volume 95 fL (79-100) Mean Corpuscular Hemoglobin 32 pg (25-35) Mean Corpuscular Hemoglobin Concent 33 g/dL (31-37) Red Cell Distribution Width 14.5 % (11.5-14.5) Platelet Count 218 x10^3/uL (140-400) Neutrophils (%) (Auto) 77 % (31-73) Lymphocytes (%) (Auto) 16 % (24-48) Monocytes (%) (Auto) 7 % (0-9) Eosinophils (%) (Auto) 0 % (0-3) Basophils (%) (Auto) 0 % (0-3) Neutrophils # (Auto) 5.0 x10^3/uL (1.8-7.7) Lymphocytes # (Auto) 1.0 x10^3/uL (1.0-4.8) Monocytes # (Auto) 0.4 x10^3/uL (0.0-1.1) Eosinophils # (Auto) 0.0 x10^3/uL (0.0-0.7) Basophils # (Auto) 0.0 x10^3/uL (0.0-0.2) Platelet Estimate Adequate (ADEQUATE) Large Platelets Present Spherocytes Occ Target Cells Occ [place] Bodies Present Sodium Level 134 mmol/L (136-145) Potassium Level 3.9 mmol/L (3.5-5.1) Chloride Level 96 mmol/L (98-107) Carbon Dioxide Level 29 mmol/L (21-32) Anion Gap 9 (6-14) Blood Urea Nitrogen 16 mg/dL (8-26) Creatinine 1.0 mg/dL (0.7-1.3) Estimated GFR (Cockcroft-Gault) 76.5 BUN/Creatinine Ratio 16 (6-20) Glucose Level 224 mg/dL (70-99) Lactic Acid Level 1.7 mmol/L (0.4-2.0) Calcium Level 8.2 mg/dL (8.5-10.1) Total Bilirubin 0.4 mg/dL (0.2-1.0) Aspartate Amino Transf (AST/SGOT) 24 U/L (15-37) Alanine Aminotransferase (ALT/SGPT) 18 U/L (16-63) Alkaline Phosphatase 77 U/L (46-116) Troponin I Quantitative 0.033 ng/mL (0.000-0.055) AR-Epu-Y-Type Natriuretic Peptide 442 pg/mL (0-124) Total Protein 6.5 g/dL (6.4-8.2) Albumin 2.8 g/dL (3.4-5.0) Albumin/Globulin Ratio 0.8 (1.0-1.7) Influenza Type A Antigen Positive (NEGATIVE) Influenza Type B Antigen Negative (NEGATIVE) Magnesium Level 1.9 mg/dL (1.8-2.4) Thyroid Stimulating Hormone (TSH) 1.224 uIU/mL (0.358-3.74) Laboratory Tests Test 04/05/19 20:09 04/05/19 20:40 04/06/19 10:17 White Blood Count 6.4 x10^3/uL (4.0-11.0) Red Blood Count 4.78 x10^6/uL (4.30-5.70) Hemoglobin 15.1 g/dL (13.0-17.5) Hematocrit 45.2 % (39.0-53.0) Mean Corpuscular Volume 95 fL (79-100) Mean Corpuscular Hemoglobin 32 pg (25-35) Mean Corpuscular Hemoglobin Concent 33 g/dL (31-37) Red Cell Distribution Width 14.5 % (11.5-14.5) Platelet Count 218 x10^3/uL (140-400) Neutrophils (%) (Auto) 77 % (31-73) Lymphocytes (%) (Auto) 16 % (24-48) Monocytes (%) (Auto) 7 % (0-9) Eosinophils (%) (Auto) 0 % (0-3) Basophils (%) (Auto) 0 % (0-3) Neutrophils # (Auto) 5.0 x10^3/uL (1.8-7.7) Lymphocytes # (Auto) 1.0 x10^3/uL (1.0-4.8) Monocytes # (Auto) 0.4 x10^3/uL (0.0-1.1) Eosinophils # (Auto) 0.0 x10^3/uL (0.0-0.7) Basophils # (Auto) 0.0 x10^3/uL (0.0-0.2) Platelet Estimate Adequate (ADEQUATE) Large Platelets Present Spherocytes Occ Target Cells Occ [place] Bodies Present Sodium Level 134 mmol/L (136-145) Potassium Level 3.9 mmol/L (3.5-5.1) Chloride Level 96 mmol/L (98-107) Carbon Dioxide Level 29 mmol/L (21-32) Anion Gap 9 (6-14) Blood Urea Nitrogen 16 mg/dL (8-26) Creatinine 1.0 mg/dL (0.7-1.3) Estimated GFR (Cockcroft-Gault) 76.5 BUN/Creatinine Ratio 16 (6-20) Glucose Level 224 mg/dL (70-99) Lactic Acid Level 1.7 mmol/L (0.4-2.0) Calcium Level 8.2 mg/dL (8.5-10.1) Total Bilirubin 0.4 mg/dL (0.2-1.0) Aspartate Amino Transf (AST/SGOT) 24 U/L (15-37) Alanine Aminotransferase (ALT/SGPT) 18 U/L (16-63) Alkaline Phosphatase 77 U/L (46-116) Troponin I Quantitative 0.033 ng/mL (0.000-0.055) YD-Ifj-Q-Type Natriuretic Peptide 442 pg/mL (0-124) Total Protein 6.5 g/dL (6.4-8.2) Albumin 2.8 g/dL (3.4-5.0) Albumin/Globulin Ratio 0.8 (1.0-1.7) Influenza Type A Antigen Positive (NEGATIVE) Influenza Type B Antigen Negative (NEGATIVE) Magnesium Level 1.9 mg/dL (1.8-2.4) Thyroid Stimulating Hormone (TSH) 1.224 uIU/mL (0.358-3.74) Brief Hospital Course Mr Mcelroy is a 59yo M w/ PMHx Asthma, COPD, Diabetes-Type II, Hypertension c/o cough, chills, nausea, vomiting, body aches. Patient states he was seen on 04/02 with diagnosis of pneumonia and influenza. He is provided with antibiotic, Tamiflu, prednisone. Patient states he's had continued shortness of breath and is not improved. Nothing makes his symptoms worse, nothing makes his symptoms better. Patient states he stopped taking medications. Patient has underlying history of diabetes, hypertension, asthma. Trop was 0.03, glucose 224. He is insisting he be allowed to smoke, I have advised him he cannot do this in the hospital, offered nicotine replacement. He asks if he can leave, then. Seen by cardiology, noted Arrhythmia; tele noted with SR with PAC's. No evidence of AFIB. Now refusing to wear tele. He is asking for his son to pick him up to leave. While discharging him he actually insisted to leave AMA. A/P: Influenza A - given tamiflu, will continue and give levaquin for superimposed bacterial pneumonia Asthma with COPD - mild exacerbation by way of influenza. Treating Diabetes-Type II - on sliding scale Hypertension - cont meds Smoker - Counseled on cessation, does not wish for nicotine replacement therapy. 135 minutes on same day admit and d/c Discharge Information Condition at Discharge: Improved Follow Up: Weeks Disposition/Orders: D/C to Home Scheduled Levofloxacin (Levaquin) 750 Mg Tablet, 750 MG PO QHS for penumonia for 5 Days, #5 Prescribed by: WALLACE BAUTISTA MD on 04/06/19 1409 Oseltamivir Phosphate (Tamiflu) 75 Mg Capsule, 75 MG PO BID for Influenza for 5 Days, #10 Prescribed by: WALLACE BAUTISTA MD on 04/06/19 1409 WALLACE BAUTISTA MD Apr 06, 2019 14:19
--- NOTE | 2019-04-06 14:27 | NUR ---
SW consulted for pt is homeless. SW notified pt was leaving AMA. SW will sign off.
== END 2019-04-06 14:16 | disposition left against medical advice (07) | DRG 190 ==
LOC: ER 19:45 → 6 SOUTH 22:39 → ER 23:15
PROVIDERS: ADMIT Internal Medicine; ATTEND Internal Medicine
DX: J44.0 Chronic obstructive pulmonary disease with (acute) lower respiratory infection (principal); J15.9 Unspecified bacterial pneumonia; J45.901 Unspecified asthma with (acute) exacerbation; J44.1 Chronic obstructive pulmonary disease with (acute) exacerbation; J09.X2 Influenza due to identified novel influenza A virus with other respiratory manifestations; I10 Essential (primary) hypertension; E11.9 Type 2 diabetes mellitus without complications; M19.90 Unspecified osteoarthritis, unspecified site; K21.9 Gastro-esophageal reflux disease without esophagitis; F17.210 Nicotine dependence, cigarettes, uncomplicated; Z59.0 Homelessness; Z90.81 Acquired absence of spleen; Z82.49 Family history of ischemic heart disease and other diseases of the circulatory system
CPT/HCPCS: 36415; 71045; 80053; 83605; 83735; 83880; 84443; 84484; 85025; 87804; 93005; 94640; 96374; J1815; J1956; J2930; J7030; J7620; 99285-25; G0378